=== PATIENT | male | born 1970 | race Hispanic/Latino ===

== ENCOUNTER 2021-06-02 11:40 | Inpatient (IN) | payer BC ==
[~2021-06-02] VITALS: Ht 180.3 cm; Wt 83.9 kg
[2021-06-02] MEDS: SODIUM CHLORIDE 0.9% 1000ML 1,000 ML IV SCH ×2 (11:59→12:40)
[2021-06-02 12:03] LABS: BASOPHILS % 0.3 % (0.0-1.0); EOSINOPHILS # (AUTO) 0.1 (0.0-0.4); EOSINOPHILS % 0.7 % (0.0-6.0); HEMATOCRIT 37.1 % (38.2-49.6); HEMOGLOBIN 11.8 g/dL (14.0-18.0); LYMPHOCYTES # (AUTO) 0.6 (1.0-3.2); LYMPHOCYTES % 4.6 % (18.0-39.1); MEAN CORPUSCULAR HEMOGLOBIN 30.6 pg (28-32); MEAN CORPUSCULAR HGB CONC 31.8 g/dL (31-35); MEAN CORPUSCULAR VOLUME 96.1 fL (81-99); MONOCYTES # (AUTO) 0.7 (0.2-0.8); NEUTROPHILS # (AUTO) 10.4 (2.1-6.9); NEUTROPHILS % 87.1 % (38.7-80.0); PLATELET COUNT 232 x10e3/uL (140-360); RED BLOOD COUNT 3.86 x10e6/uL (4.3-5.7); RED CELL DISTRIBUTION WIDTH 15.9 % (11.7-14.4)
[2021-06-02] MEDS ORDERED: SODIUM CHLORIDE 0.9% 1000ML 1,000 ML IV SCH (12:15)
[2021-06-02] MEDS ORDERED: ACETAMINOPHEN 325 MG TAB PO ONE (12:15)
[2021-06-02] MEDS: CEFEPIME 1 GM in SODIUM CHLORIDE 0.9% 50ML 50 ML IV SCH (12:20)
[2021-06-02 12:21] LABS: ALBUMIN/GLOBULIN RATIO 0.5 (0.8-2.0); ANION GAP 27.5 mmol/L (8-16); CALCIUM 10.1 mg/dL (8.4-10.2); CREATININE, SERUM 16.09 mg/dL (0.72-1.25); POTASSIUM 4.5 mmol/L (3.5-5.1)
[2021-06-02] MEDS: Vancomycin IV 1 GM in SODIUM CHLORIDE 0.9% 250ML 250 ML IV SCH (12:40)
[2021-06-02] MEDS ORDERED: CARVEDILOL25 MG (13:32)
[2021-06-02] MEDS ORDERED: PANTOPRAZOLE SO40 MG (13:32)
[2021-06-02] MEDS ORDERED: CALCITRIOL0.5 MCG (13:32)
[2021-06-02] MEDS ORDERED: SEVELAMER CARB800 MG (13:32)
[2021-06-02] MEDS ORDERED: ROPINIROLE HC0.25 MG (13:32)
[2021-06-02] MEDS ORDERED: CIPROFLOXACIN500 MG (13:32)
[2021-06-02] MEDS ORDERED: GABAPENTIN100 MG (13:32)
[2021-06-02 14:37] VITALS: BP 118/68
[2021-06-02 14:46] VITALS: BP 118/68
[2021-06-02 15:05] LABS: BODY FLUID APPEARANCE CLEAR; BODY FLUID COLOR COLORLESS; BODY FLUID TYPE PERITONEAL
[2021-06-02] MEDS ORDERED: SILVADENE20 GM TOP (15:15)
[2021-06-02] MEDS ORDERED: SENSIPAR30 MG PO (15:16)
[2021-06-02] MEDS ORDERED: NIFEDIPINE ER30 M1 PO (15:17)
[2021-06-02] MEDS ORDERED: NEURONTIN100 MG PO (15:19)
[2021-06-02] MEDS ORDERED: CIPRO500 MG PO (15:19)
[2021-06-02] MEDS ORDERED: CARVEDILOL12.5 MG PO (15:20)
[2021-06-02 15:33] VITALS: BP 118/68
[2021-06-02 15:47] VITALS: BP 118/68
[2021-06-02 16:57] LABS: WBC,BODY FLUID 4 cells/uL
[2021-06-02 16:59] LABS: RBC,BODY FLUID < 2000 cells/uL
[2021-06-02] MEDS: SODIUM BICARBONATE 650 MG TAB PO SCH (17:28)
[2021-06-02] MEDS ORDERED: CEFEPIME 1 GM in SODIUM CHLORIDE 0.9% 50ML 50 ML IV SCH (18:00)
[2021-06-02] MEDS: ONDANSETRON HCL INJ 2MG/ML 2ML 2 MG/ML VIAL IV PRN (19:23)
[2021-06-02] MEDS: MORPHINE SULFATE INJ 4 MG/ML INJ 1ML IV PRN (19:23)
[2021-06-02 20:00] VITALS: BP 177/91
[2021-06-02 20:50] VITALS: BP 177/91
[2021-06-03] VITALS (8 sets, daily range): BP systolic 91–202; BP diastolic 62–95
[2021-06-03] MEDS ORDERED: SODIUM CHLORIDE 0.9% 250ML 250 ML ONE (00:22)
[2021-06-03] MEDS: CEFEPIME 1 GM in SODIUM CHLORIDE 0.9% 50ML 50 ML IV SCH (00:30)
[2021-06-03 04:56] LABS: BASOPHILS # (AUTO) 0.1 (0.0-0.1); BASOPHILS % 0.5 % (0.0-1.0); EOSINOPHILS # (AUTO) 0.1 (0.0-0.4); EOSINOPHILS % 0.5 % (0.0-6.0); HEMATOCRIT 30.5 % (38.2-49.6); HEMOGLOBIN 9.7 g/dL (14.0-18.0); LYMPHOCYTES # (AUTO) 0.8 (1.0-3.2); LYMPHOCYTES % 7.7 % (18.0-39.1); MEAN CORPUSCULAR HEMOGLOBIN 30.7 pg (28-32); MEAN CORPUSCULAR HGB CONC 31.8 g/dL (31-35); MEAN CORPUSCULAR VOLUME 96.5 fL (81-99); MONOCYTES # (AUTO) 0.8 (0.2-0.8); MONOCYTES % 8.3 % (4.4-11.3); NEUTROPHILS # (AUTO) 8.1 (2.1-6.9); NEUTROPHILS % 81.9 % (38.7-80.0); PLATELET COUNT 184 x10e3/uL (140-360); RED BLOOD COUNT 3.16 x10e6/uL (4.3-5.7); RED CELL DISTRIBUTION WIDTH 15.9 % (11.7-14.4)
[2021-06-03 05:20] LABS: ANION GAP 23.1 mmol/L (8-16); CREATININE, SERUM 15.46 mg/dL (0.72-1.25); MAGNESIUM 1.7 MG/DL (1.3-2.1); PHOSPHORUS 6.4 MG/DL (2.3-4.7); POTASSIUM 4.1 mmol/L (3.5-5.1)
[2021-06-03] MEDS ORDERED: ACETAMINOPHEN 325 MG TAB PO PRN (09:15)
[2021-06-03] MEDS: ROPINIROLE HCL 0.25 MG TAB PO SCH (10:00)
[2021-06-03] MEDS: SEVELAMER CARBONATE 800 MG TAB PO SCH (10:00)
[2021-06-03] MEDS: SODIUM BICARBONATE 650 MG TAB PO SCH ×2 (10:01→18:02)
[2021-06-03] MEDS: Vancomycin IV 1 GM in SODIUM CHLORIDE 0.9% 250ML 250 ML IV SCH (10:01)
[2021-06-03] MEDS: CARVEDILOL 12.5 MG TAB PO SCH ×2 (10:02→17:00)
[2021-06-03] MEDS: GABAPENTIN 100 MG CAP PO SCH ×2 (10:31→18:02)
[2021-06-03] MEDS: PANTOPRAZOLE SOD 40 MG TABEC PO SCH (10:39)
[2021-06-03] MEDS: NIFEDIPINE CR 30 MG TAB PO SCH (10:39)
[2021-06-03] MEDS: CALCITRIOL 0.25 MCG CAP PO SCH (10:40)
[2021-06-03] MEDS: CINACALCET 30 MG TAB PO SCH (12:07)
[2021-06-03] MEDS: PIPERACILLIN/TAZOBACTAM 3.375 GM in SODIUM CHLORIDE 0.9% 50ML 50 ML IV SCH (13:27)
[2021-06-03] MEDS: MORPHINE SULFATE INJ 4 MG/ML INJ 1ML IV PRN (13:53)
[2021-06-03] MEDS: ONDANSETRON HCL INJ 2MG/ML 2ML 2 MG/ML VIAL IV PRN (13:53)
[2021-06-04] VITALS (9 sets, daily range): BP systolic 113–140; BP diastolic 68–89
[2021-06-04] MEDS: PIPERACILLIN/TAZOBACTAM 3.375 GM in SODIUM CHLORIDE 0.9% 50ML 50 ML IV SCH ×2 (02:00→14:08)
[2021-06-04] MEDS: NIFEDIPINE CR 30 MG TAB PO SCH (09:00)
[2021-06-04] MEDS ORDERED: SODIUM CHLORIDE 0.9% IV SCH (09:00)
[2021-06-04] MEDS ORDERED: VANCOMYCIN IV SCH (09:00)
[2021-06-04] MEDS: CARVEDILOL 12.5 MG TAB PO SCH ×2 (09:00→17:00)
[2021-06-04] MEDS: GABAPENTIN 100 MG CAP PO SCH ×2 (09:00→16:22)
[2021-06-04] MEDS: Vancomycin IV 500 MG in SODIUM CHLORIDE 0.9% 100 ML IV SCH (09:00)
[2021-06-04] MEDS: PANTOPRAZOLE SOD 40 MG TABEC PO SCH (09:40)
[2021-06-04] MEDS: CALCITRIOL 0.25 MCG CAP PO SCH (09:42)
[2021-06-04] MEDS: ROPINIROLE HCL 0.25 MG TAB PO SCH (09:42)
[2021-06-04] MEDS: SODIUM BICARBONATE 650 MG TAB PO SCH ×2 (09:42→16:22)
[2021-06-04] MEDS: CINACALCET 30 MG TAB PO SCH (09:42)
[2021-06-04] MEDS: SEVELAMER CARBONATE 800 MG TAB PO SCH (09:43)
[2021-06-04] MEDS: SILVER SULFADIAZINE 50GM CREAM TOP SCH (12:13)
[2021-06-05] VITALS (8 sets, daily range): BP systolic 117–144; BP diastolic 73–81
[2021-06-05] MEDS: PIPERACILLIN/TAZOBACTAM 3.375 GM in SODIUM CHLORIDE 0.9% 50ML 50 ML IV SCH ×2 (01:02→13:44)
[2021-06-05 04:49] LABS: BASOPHILS % 0.1 % (0.0-1.0); EOSINOPHILS # (AUTO) 0.3 (0.0-0.4); EOSINOPHILS % 3.4 % (0.0-6.0); LYMPHOCYTES # (AUTO) 0.6 (1.0-3.2); LYMPHOCYTES % 6.8 % (18.0-39.1); MEAN CORPUSCULAR HEMOGLOBIN 30.1 pg (28-32); MEAN CORPUSCULAR HGB CONC 32.1 g/dL (31-35); MEAN CORPUSCULAR VOLUME 93.6 fL (81-99); MONOCYTES # (AUTO) 0.7 (0.2-0.8); MONOCYTES % 8.5 % (4.4-11.3); NEUTROPHILS # (AUTO) 6.8 (2.1-6.9); NEUTROPHILS % 80.4 % (38.7-80.0); PLATELET COUNT 203 x10e3/uL (140-360); RED BLOOD COUNT 2.99 x10e6/uL (4.3-5.7); RED CELL DISTRIBUTION WIDTH 15.6 % (11.7-14.4)
[2021-06-05 05:13] LABS: ANION GAP 27.1 mmol/L (8-16); CALCIUM 8.8 mg/dL (8.4-10.2); CREATININE, SERUM 16.98 mg/dL (0.72-1.25); MAGNESIUM 1.9 MG/DL (1.3-2.1); POTASSIUM 4.1 mmol/L (3.5-5.1)
[2021-06-05] MEDS: NIFEDIPINE CR 30 MG TAB PO SCH (09:00)
[2021-06-05] MEDS: SILVER SULFADIAZINE 50GM CREAM TOP SCH (09:06)
[2021-06-05] MEDS: MUPIROCIN 2% OINT 22 GM TUBE TOP SCH (09:06)
[2021-06-05] MEDS: CINACALCET 30 MG TAB PO SCH (09:06)
[2021-06-05] MEDS: CALCITRIOL 0.25 MCG CAP PO SCH (09:06)
[2021-06-05] MEDS: SEVELAMER CARBONATE 800 MG TAB PO SCH (09:06)
[2021-06-05] MEDS: SODIUM BICARBONATE 650 MG TAB PO SCH ×2 (09:06→17:05)
[2021-06-05] MEDS: GABAPENTIN 100 MG CAP PO SCH ×2 (09:06→17:05)
[2021-06-05] MEDS: ROPINIROLE HCL 0.25 MG TAB PO SCH (09:06)
[2021-06-05] MEDS: Vancomycin IV 500 MG in SODIUM CHLORIDE 0.9% 100 ML IV SCH (09:07)
[2021-06-05] MEDS: PANTOPRAZOLE SOD 40 MG TABEC PO SCH (09:07)
[2021-06-05] MEDS: CARVEDILOL 12.5 MG TAB PO SCH ×2 (09:07→17:05)
[2021-06-05] MEDS: MORPHINE SULFATE INJ 4 MG/ML INJ 1ML IV PRN ×2 (09:30→20:57)
[2021-06-05] MEDS: EPOETIN ALFA-EPBX 10,000 UNIT/ML VIAL SC SCH (09:56)
[2021-06-05] MEDS: ONDANSETRON HCL INJ 2MG/ML 2ML 2 MG/ML VIAL IV PRN (20:57)
[2021-06-06] VITALS (7 sets, daily range): BP systolic 107–174; BP diastolic 70–93
[2021-06-06] MEDS: PIPERACILLIN/TAZOBACTAM 3.375 GM in SODIUM CHLORIDE 0.9% 50ML 50 ML IV SCH ×2 (02:19→14:22)
[2021-06-06] MEDS: MORPHINE SULFATE INJ 4 MG/ML INJ 1ML IV PRN (03:51)
[2021-06-06] MEDS: ROPINIROLE HCL 0.25 MG TAB PO SCH (09:00)
[2021-06-06] MEDS: SEVELAMER CARBONATE 800 MG TAB PO SCH (09:00)
[2021-06-06] MEDS: Vancomycin IV 500 MG in SODIUM CHLORIDE 0.9% 100 ML IV SCH (09:52)
[2021-06-06] MEDS: GABAPENTIN 100 MG CAP PO SCH ×2 (09:52→17:57)
[2021-06-06] MEDS: CARVEDILOL 12.5 MG TAB PO SCH ×2 (09:52→17:00)
[2021-06-06] MEDS: PANTOPRAZOLE SOD 40 MG TABEC PO SCH (09:52)
[2021-06-06] MEDS: ASPIRIN 81 MG ENTERIC COATED PO SCH (09:52)
[2021-06-06] MEDS: MUPIROCIN 2% OINT 22 GM TUBE TOP SCH (09:53)
[2021-06-06] MEDS: CINACALCET 30 MG TAB PO SCH (09:53)
[2021-06-06] MEDS: NIFEDIPINE CR 30 MG TAB PO SCH (09:53)
[2021-06-06] MEDS: SODIUM BICARBONATE 650 MG TAB PO SCH ×2 (09:53→17:57)
[2021-06-06] MEDS: CALCITRIOL 0.25 MCG CAP PO SCH (09:53)
[2021-06-06] MEDS: SILVER SULFADIAZINE 50GM CREAM TOP SCH (09:53)
[2021-06-06] MEDS ORDERED: LACTULOSE SYRUP 20 GM/30 ML UDC PO PRN (14:00)
[2021-06-06] MEDS: DOCUSATE SODIUM 100 MG CAP PO SCH (17:56)
[2021-06-06] MEDS: POLYETHYLENE GLYCOL 3350 17 GM PACK PO SCH (22:36)
[2021-06-07] VITALS (8 sets, daily range): BP systolic 107–138; BP diastolic 75–92
[2021-06-07] MEDS: PIPERACILLIN/TAZOBACTAM 3.375 GM in SODIUM CHLORIDE 0.9% 50ML 50 ML IV SCH ×2 (02:35→14:05)
[2021-06-07] MEDS: SEVELAMER CARBONATE 800 MG TAB PO SCH (07:35)
[2021-06-07] MEDS: ROPINIROLE HCL 0.25 MG TAB PO SCH (07:35)
[2021-06-07] MEDS: PANTOPRAZOLE SOD 40 MG TABEC PO SCH (08:20)
[2021-06-07] MEDS: DOCUSATE SODIUM 100 MG CAP PO SCH ×2 (08:20→17:30)
[2021-06-07] MEDS: Vancomycin IV 500 MG in SODIUM CHLORIDE 0.9% 100 ML IV SCH (08:20)
[2021-06-07] MEDS: ASPIRIN 81 MG ENTERIC COATED PO SCH (08:20)
[2021-06-07] MEDS: SODIUM BICARBONATE 650 MG TAB PO SCH ×2 (08:21→17:31)
[2021-06-07] MEDS: NIFEDIPINE CR 30 MG TAB PO SCH (08:21)
[2021-06-07] MEDS: SILVER SULFADIAZINE 50GM CREAM TOP SCH (08:21)
[2021-06-07] MEDS: LACTULOSE SYRUP 20 GM/30 ML UDC PO SCH ×3 (08:21→21:00)
[2021-06-07] MEDS: CALCITRIOL 0.25 MCG CAP PO SCH (08:21)
[2021-06-07] MEDS: POLYETHYLENE GLYCOL 3350 17 GM PACK PO SCH (08:21)
[2021-06-07] MEDS: CARVEDILOL 12.5 MG TAB PO SCH ×2 (08:21→17:31)
[2021-06-07] MEDS: GABAPENTIN 100 MG CAP PO SCH ×2 (08:21→17:31)
[2021-06-07] MEDS: CINACALCET 30 MG TAB PO SCH (08:21)
[2021-06-07] MEDS: MUPIROCIN 2% OINT 22 GM TUBE TOP SCH (08:21)
[2021-06-07] MEDS ORDERED: DEXTROSE 50% SYRINGE 50 ML IV PRN (12:45)
[2021-06-07] MEDS: INSULIN REGULAR, HUMAN 100 UNIT/1 ML SQ SCH ×2 (16:30→21:00)
[2021-06-08] VITALS (15 sets, daily range): BP systolic 124–192; BP diastolic 44–95
[2021-06-08] MEDS: PIPERACILLIN/TAZOBACTAM 3.375 GM in SODIUM CHLORIDE 0.9% 50ML 50 ML IV SCH ×2 (02:00→14:00)
[2021-06-08 05:43] LABS: BASOPHILS # (AUTO) 0.1 (0.0-0.1); BASOPHILS % 0.4 % (0.0-1.0); EOSINOPHILS # (AUTO) 0.5 (0.0-0.4); EOSINOPHILS % 3.4 % (0.0-6.0); HEMATOCRIT 29.7 % (38.2-49.6); HEMOGLOBIN 9.3 g/dL (14.0-18.0); LYMPHOCYTES # (AUTO) 0.6 (1.0-3.2); LYMPHOCYTES % 4.2 % (18.0-39.1); MEAN CORPUSCULAR HEMOGLOBIN 30.3 pg (28-32); MEAN CORPUSCULAR HGB CONC 31.3 g/dL (31-35); MEAN CORPUSCULAR VOLUME 96.7 fL (81-99); MONOCYTES # (AUTO) 0.7 (0.2-0.8); MONOCYTES % 5.2 % (4.4-11.3); NEUTROPHILS # (AUTO) 11.4 (2.1-6.9); NEUTROPHILS % 85.8 % (38.7-80.0); PLATELET COUNT 301 x10e3/uL (140-360); RED BLOOD COUNT 3.07 x10e6/uL (4.3-5.7); RED CELL DISTRIBUTION WIDTH 16.2 % (11.7-14.4)
[2021-06-08 05:59] LABS: INR 1.17; PROTHROMBIN TIME 15.6 seconds (11.9-14.5)
[2021-06-08 06:00] LABS: PARTIAL THROMBOPLASTIN TIME 61.7 seconds (23.8-35.5)
[2021-06-08 06:08] LABS: ANION GAP 26.1 mmol/L (8-16); CALCIUM 9.5 mg/dL (8.4-10.2); CREATININE, SERUM 17.04 mg/dL (0.72-1.25); POTASSIUM 4.1 mmol/L (3.5-5.1)
[2021-06-08] MEDS: INSULIN REGULAR, HUMAN 100 UNIT/1 ML SQ SCH ×4 (07:30→21:00)
[2021-06-08] MEDS: PANTOPRAZOLE SOD 40 MG TABEC PO SCH (07:30)
[2021-06-08] MEDS ORDERED: SODIUM CHLORIDE 0.9% 250ML 250 ML ONE ×3 (07:45→15:58)
[2021-06-08] MEDS: CARVEDILOL 12.5 MG TAB PO SCH ×2 (07:59→17:49)
[2021-06-08] MEDS: DOCUSATE SODIUM 100 MG CAP PO SCH ×2 (07:59→17:00)
[2021-06-08] MEDS: GABAPENTIN 100 MG CAP PO SCH (08:01)
[2021-06-08] MEDS: LACTULOSE SYRUP 20 GM/30 ML UDC PO SCH ×3 (08:01→21:00)
[2021-06-08] MEDS: SODIUM BICARBONATE 650 MG TAB PO SCH ×2 (08:02→17:49)
[2021-06-08] MEDS: SILVER SULFADIAZINE 50GM CREAM TOP SCH (09:00)
[2021-06-08] MEDS: MUPIROCIN 2% OINT 22 GM TUBE TOP SCH (09:00)
[2021-06-08] MEDS ORDERED: MIDAZOLAM HCL 2 MG/2 ML VIAL ONE (10:54)
[2021-06-08] MEDS ORDERED: FENTANYL CITRATE/PF 100MCG/2 ML INJ ONE (10:55)
[2021-06-08] MEDS ORDERED: LIDOCAINE HCL 2% LOCAL 20 ML VIAL ONE (10:55)
[2021-06-08] MEDS ORDERED: HEPARIN SOD/SOD CHLORIDE 2,000 ML ONE (10:55)
[2021-06-08] MEDS ORDERED: SODIUM CHLORIDE 0.9% 1000ML 1,000 ML ONE (10:56)
[2021-06-08] MEDS ORDERED: IOPAMIDOL 300MG/ML 100 ML INFUS..BTL IV ONE (10:56)
[2021-06-08] MEDS: EPOETIN ALFA-EPBX 10,000 UNIT/ML VIAL SC SCH (12:31)
[2021-06-08] MEDS ORDERED: LIDOCAINE HCL 1% LOCAL INJ 20 ML VIAL ONE (15:58)
[2021-06-08] MEDS: POLYETHYLENE GLYCOL 3350 17 GM PACK PO SCH (17:47)
[2021-06-08] MEDS: ASPIRIN 81 MG ENTERIC COATED PO SCH (17:47)
[2021-06-08] MEDS: CALCITRIOL 0.25 MCG CAP PO SCH (17:48)
[2021-06-08] MEDS: ROPINIROLE HCL 0.25 MG TAB PO SCH (17:48)
[2021-06-08] MEDS: SEVELAMER CARBONATE 800 MG TAB PO SCH (17:48)
[2021-06-08] MEDS: NIFEDIPINE CR 30 MG TAB PO SCH (17:48)
[2021-06-08] MEDS: CINACALCET 30 MG TAB PO SCH (17:48)
[2021-06-08] MEDS ORDERED: SODIUM CHLORIDE 0.9% IV SCH (21:00)
[2021-06-08] MEDS ORDERED: ATORVASTATIN 20 MG TAB PO SCH (21:00)
[2021-06-08] MEDS ORDERED: ERTAPENEM IV SCH (21:00)
[2021-06-09] VITALS: BP 146/42
[2021-06-09 04:00] VITALS: BP 150/63
[2021-06-09] MEDS: PANTOPRAZOLE SOD 40 MG TABEC PO SCH (07:30)
[2021-06-09] MEDS: INSULIN REGULAR, HUMAN 100 UNIT/1 ML SQ SCH (07:30)
[2021-06-09 08:04] VITALS: BP 167/86
[2021-06-09 08:32] VITALS: BP 167/86
[2021-06-09] MEDS: DOCUSATE SODIUM 100 MG CAP PO SCH (08:59)
[2021-06-09] MEDS: NIFEDIPINE CR 30 MG TAB PO SCH (08:59)
[2021-06-09] MEDS: POLYETHYLENE GLYCOL 3350 17 GM PACK PO SCH (08:59)
[2021-06-09] MEDS: CARVEDILOL 12.5 MG TAB PO SCH (08:59)
[2021-06-09] MEDS: LACTULOSE SYRUP 20 GM/30 ML UDC PO SCH (08:59)
[2021-06-09] MEDS: ASPIRIN 81 MG ENTERIC COATED PO SCH (08:59)
[2021-06-09] MEDS: SILVER SULFADIAZINE 50GM CREAM TOP SCH (09:00)
[2021-06-09] MEDS: CALCITRIOL 0.25 MCG CAP PO SCH (09:00)
[2021-06-09] MEDS: MUPIROCIN 2% OINT 22 GM TUBE TOP SCH (09:00)
[2021-06-09] MEDS: CINACALCET 30 MG TAB PO SCH (09:00)
[2021-06-09] MEDS: SODIUM BICARBONATE 650 MG TAB PO SCH (09:00)
[2021-06-09] MEDS ORDERED: CLOPIDOGREL BISULFATE 75 MG TAB PO SCH (09:00)
[2021-06-09] MEDS: SEVELAMER CARBONATE 800 MG TAB PO SCH (09:00)
[2021-06-09] MEDS: ROPINIROLE HCL 0.25 MG TAB PO SCH (09:00)
== END 2021-06-09 10:05 | disposition left against medical advice (07) | DRG 853 ==
LOC: ER 11:55 → ERHOLD 13:13 → ER 13:44 → MED/SURG3 13:49
PROVIDERS: ADMIT Internal Medicine; ATTEND Internal Medicine
PROC: 3E1M39Z Irrigation of Peritoneal Cavity using Dialysate, Percutaneous Approach (ICD-10-PCS; 2021-06-02)
PROC: 3E1M39Z Irrigation of Peritoneal Cavity using Dialysate, Percutaneous Approach (ICD-10-PCS; 2021-06-03)
PROC: 3E1M39Z Irrigation of Peritoneal Cavity using Dialysate, Percutaneous Approach (ICD-10-PCS; 2021-06-04)
PROC: 0JBR0ZZ Excision of Left Foot Subcutaneous Tissue and Fascia, Open Approach (ICD-10-PCS; 2021-06-05)
PROC: 0JBQ0ZZ Excision of Right Foot Subcutaneous Tissue and Fascia, Open Approach (ICD-10-PCS; 2021-06-05)
PROC: 0JBR0ZZ Excision of Left Foot Subcutaneous Tissue and Fascia, Open Approach (ICD-10-PCS; 2021-06-07)
PROC: 0KBV0ZZ Excision of Right Foot Muscle, Open Approach (ICD-10-PCS; 2021-06-07)
PROC: 3E1M39Z Irrigation of Peritoneal Cavity using Dialysate, Percutaneous Approach (ICD-10-PCS; 2021-06-07)
PROC: B41D1ZZ Fluoroscopy of Aorta and Bilateral Lower Extremity Arteries using Low Osmolar Contrast (ICD-10-PCS; principal; 2021-06-08)
DX: A41.9 Sepsis, unspecified organism (principal); N18.6 End stage renal disease; I12.0 Hypertensive chronic kidney disease with stage 5 chronic kidney disease or end stage renal disease; E87.1 Hypo-osmolality and hyponatremia; L03.115 Cellulitis of right lower limb; M86.8X7 Other osteomyelitis, ankle and foot; L97.415 Non-pressure chronic ulcer of right heel and midfoot with muscle involvement without evidence of necrosis; L97.422 Non-pressure chronic ulcer of left heel and midfoot with fat layer exposed; E11.621 Type 2 diabetes mellitus with foot ulcer; A41.89 Other specified sepsis; E11.22 Type 2 diabetes mellitus with diabetic chronic kidney disease; Z99.2 Dependence on renal dialysis; D64.9 Anemia, unspecified; E11.51 Type 2 diabetes mellitus with diabetic peripheral angiopathy without gangrene; E11.42 Type 2 diabetes mellitus with diabetic polyneuropathy; E11.628 Type 2 diabetes mellitus with other skin complications; E11.69 Type 2 diabetes mellitus with other specified complication; E83.39 Other disorders of phosphorus metabolism; B95.2 Enterococcus as the cause of diseases classified elsewhere
CPT/HCPCS: 36247; 36415; 71045; 75630; 76937; 80048; 80053; 80202; 82948; 83605; 83735; 84100; 85025; 85610; 85730; 87040; 87070; 87071; 87075; 87186; 87205; 89051; 93005; 93306; 93925; 99152; 99153; 99251; 99284; C1760; C1769; J0692; J1335; J1817; J2001; J2250; J2270; J2405; J2543; J3010; J3370; J7030; J7050; Q9967; U0002

== ENCOUNTER → 2022-10-07 | Day surgery (SDC) | payer MEDICARE ==
[~2022-10-07] MED LIST: CALCITRIOL0.5 MCG; CARVEDILOL12.5 MG PO; CARVEDILOL25 MG; CIPRO500 MG PO; CIPROFLOXACIN500 MG; CLOPIDOGREL75 MG PO; GABAPENTIN100 MG; GLIMEPIRIDE2 MG PO; LIDOCAINE HCL 2% LOCAL INJ 5 ML SDV VIAL INJ ONE; MIDAZOLAM HCL 2 MG/2 ML VIAL ONE; NEURONTIN100 MG PO; NIFEDIPINE ER30 M1 PO; PANTOPRAZOLE SO40 MG; POVIDONE IODINE 0.05% 0.05 % ML PO ONE; PROPOFOL IV EMULSION 10 MG/ML 20 ML VIAL ONE; ROPINIROLE HC0.25 MG; SENSIPAR30 MG PO; SEVELAMER CARB800 MG; SILVADENE20 GM TOP; SODIUM CHLORIDE 0.9% 500ML 500 ML ONE; [UNRECOGNIZED DRUG - OTHER] PO
[2022-10-07 08:54] VITALS: BP 123/70
== END | disposition home or self-care (01) ==
LOC: OR 07:07
PROVIDERS: ATTEND Internal Medicine Gastroenterology
DX: Z12.11 Encounter for screening for malignant neoplasm of colon (principal); K63.5 Polyp of colon; K64.8 Other hemorrhoids; K21.9 Gastro-esophageal reflux disease without esophagitis; I12.0 Hypertensive chronic kidney disease with stage 5 chronic kidney disease or end stage renal disease; N18.6 End stage renal disease; Z01.810 Encounter for preprocedural cardiovascular examination; Z79.02 Long term (current) use of antithrombotics/antiplatelets; Z79.84 Long term (current) use of oral hypoglycemic drugs; Z79.899 Other long term (current) drug therapy
CPT/HCPCS: 36415; 45385; 82948; 84132; 88305; 93005 ×2; J2001; J2250; J2704; J7040; 45378

== ENCOUNTER → 2023-01-04 | Day surgery (SDC) | payer BC ==
[~2023-01-04] MED LIST changes: +ASPIRIN81 MG PO; -CALCITRIOL0.5 MCG; +CALCITRIOL0.5 MCG PO; +FENTANYL CITRATE/PF 100MCG/2 ML INJ ONE; -LIDOCAINE HCL 2% LOCAL INJ 5 ML SDV VIAL INJ ONE; +LIPITOR10 MG PO; +METOCLOPRAMIDE10 MG PO; +OR PHACO EYE KIT ONE; -PANTOPRAZOLE SO40 MG; +PANTOPRAZOLE SO40 MG PO; -POVIDONE IODINE 0.05% 0.05 % ML PO ONE; +PREOP PHACO EYE KIT ONE; -PROPOFOL IV EMULSION 10 MG/ML 20 ML VIAL ONE
[2023-01-04 09:00] LABS: ANION GAP 16.5 mmol/L (8-16); CALCIUM 9.2 mg/dL (8.4-10.2); CREATININE, SERUM 10.79 mg/dL (0.72-1.25); POTASSIUM 5.5 mmol/L (3.5-5.1)
[2023-01-04 10:53] VITALS: BP 156/84
== END | disposition home or self-care (01) ==
LOC: OR 07:40
PROVIDERS: ATTEND Ophthalmology
DX: H25.12 Age-related nuclear cataract, left eye (principal); E11.22 Type 2 diabetes mellitus with diabetic chronic kidney disease; I12.0 Hypertensive chronic kidney disease with stage 5 chronic kidney disease or end stage renal disease; N18.6 End stage renal disease; I25.118 Atherosclerotic heart disease of native coronary artery with other forms of angina pectoris; I70.213 Atherosclerosis of native arteries of extremities with intermittent claudication, bilateral legs; E78.00 Pure hypercholesterolemia, unspecified; K21.9 Gastro-esophageal reflux disease without esophagitis; Z79.02 Long term (current) use of antithrombotics/antiplatelets; Z79.82 Long term (current) use of aspirin; Z79.84 Long term (current) use of oral hypoglycemic drugs; Z99.2 Dependence on renal dialysis
CPT/HCPCS: 36415; 66984; 80048; 82948; J2250; J3010; J7040

== ENCOUNTER 2024-12-27 08:50 | Emergency (ER) | payer BC ==
[~2024-12-27] VITALS: Ht 177.8 cm; Wt 83.6 kg
[~2024-12-27 08:50] MED LIST changes: -FENTANYL CITRATE/PF 100MCG/2 ML INJ ONE; +LIDOCAINE HCL50 ML TOP; +LOKELMA10 GM PO; -MIDAZOLAM HCL 2 MG/2 ML VIAL ONE; -OR PHACO EYE KIT ONE; -PREOP PHACO EYE KIT ONE; +SEVELAMER CARB800 MG PO; -SODIUM CHLORIDE 0.9% 500ML 500 ML ONE
[2024-12-27 08:54] VITALS: TEMP 98
[2024-12-27] MEDS: AMLODIPINE BESYLATE 10 MG TAB PO ONE (09:45)
[2024-12-27] MEDS ORDERED: HYDRALAZINE HCL 20 MG/ML VIAL IV ONE (10:30)
[2024-12-27 10:45] VITALS: BP 198/91
[2024-12-27] MEDS: CLONIDINE HCL 0.1 MG TAB PO ONE (10:45)
[2024-12-27] MEDS ORDERED: BACLOFEN10 MG PO ×2 (11:21)
[2024-12-27 12:00] VITALS: PULSE 72; RESP 18; O2SAT 97
== END 2024-12-27 12:09 | disposition home or self-care (01) ==
LOC: FSED 08:54
DX: M79.605 Pain in left leg (principal); L03.116 Cellulitis of left lower limb; S86.812A Strain of other muscle(s) and tendon(s) at lower leg level, left leg, initial encounter; I12.9 Hypertensive chronic kidney disease with stage 1 through stage 4 chronic kidney disease, or unspecified chronic kidney disease; E11.22 Type 2 diabetes mellitus with diabetic chronic kidney disease; N18.9 Chronic kidney disease, unspecified; Z99.2 Dependence on renal dialysis; E78.5 Hyperlipidemia, unspecified; D64.9 Anemia, unspecified; H54.61 Unqualified visual loss, right eye, normal vision left eye
CPT/HCPCS: 93971; 99284

== ENCOUNTER 2025-05-13 15:08 | Inpatient (IN) | payer BC ==
[~2025-05-13] VITALS: Ht 177.8 cm; Wt 83.5 kg
[2025-05-13] VITALS (7 sets, daily range): BP systolic 160; BP diastolic 83; PULSE 80–102; RESP 16–20; TEMP 98.5–98.6; O2SAT 96–100
[~2025-05-13 15:08] MED LIST changes: +BACLOFEN10 MG PO
[2025-05-13 15:53] LABS: BASOPHILS % 0.2 % (0.0-1.0); EOSINOPHILS # (AUTO) 0.1 (0.0-0.4); EOSINOPHILS % 0.9 % (0.0-6.0); HEMATOCRIT 37.8 % (38.2-49.6); HEMOGLOBIN 11.9 g/dL (14.0-18.0); LYMPHOCYTES # (AUTO) 0.7 (1.0-3.2); LYMPHOCYTES % 7.9 % (18.0-39.1); MEAN CORPUSCULAR HGB CONC 31.5 g/dL (31-35); MONOCYTES # (AUTO) 0.7 (0.2-0.8); MONOCYTES % 7.7 % (4.4-11.3); NEUTROPHILS # (AUTO) 7.6 (2.1-6.9); NEUTROPHILS % 82.3 % (38.7-80.0); PLATELET COUNT 132 x10e3/uL (140-360); RED BLOOD COUNT 4.11 x10e6/uL (4.3-5.7); WHITE BLOOD COUNT 9.25 x10e3/uL (4.8-10.8)
[2025-05-13] MEDS ORDERED: IOPAMIDOL 370 MG/ML 100 ML INFUS..BTL INJ ONE (15:59)
[2025-05-13 16:26] LABS: ALBUMIN 2.9 g/dL (3.5-5.0); ALBUMIN/GLOBULIN RATIO 0.7 (0.8-2.0); ANION GAP 18.7 mmol/L (8-16); BILIRUBIN,TOTAL 0.5 mg/dL (0.2-1.2); CALCIUM 7.9 mg/dL (8.4-10.2); CREATININE, SERUM 6.34 mg/dL (0.72-1.25); POTASSIUM 3.7 mmol/L (3.5-5.1); TOTAL PROTEIN 7.3 g/dL (6.5-8.1)
[2025-05-13] MEDS: Vancomycin IV 1 GM in SODIUM CHLORIDE 0.9% 250ML 250 ML IV ONE (18:04)
[2025-05-13] MEDS: HYDROMORPHONE 1MG/1ML INJ IV PRN (18:27)
[2025-05-13] MEDS: HYDRALAZINE HCL 20 MG/ML VIAL IV PRN (20:10)
[2025-05-14] VITALS (10 sets, daily range): BP systolic 117–187; BP diastolic 61–84; PULSE 77–109; RESP 16–20; TEMP 98–100.2; O2SAT 94–100
[2025-05-14] MEDS: ACETAMINOPHEN 325 MG TAB PO PRN (01:38)
[2025-05-14 06:26] LABS: BASOPHILS % 0.3 % (0.0-1.0); EOSINOPHILS % 0.4 % (0.0-6.0); HEMOGLOBIN 10.8 g/dL (14.0-18.0); LYMPHOCYTES # (AUTO) 1.3 (1.0-3.2); LYMPHOCYTES % 11.6 % (18.0-39.1); MEAN CORPUSCULAR HEMOGLOBIN 29.1 pg (28-32); MEAN CORPUSCULAR HGB CONC 31.8 g/dL (31-35); MEAN CORPUSCULAR VOLUME 91.6 fL (81-99); MONOCYTES # (AUTO) 1.3 (0.2-0.8); MONOCYTES % 12.3 % (4.4-11.3); NEUTROPHILS % 74.3 % (38.7-80.0); PLATELET COUNT 137 x10e3/uL (140-360); RED BLOOD COUNT 3.71 x10e6/uL (4.3-5.7); RED CELL DISTRIBUTION WIDTH 13.9 % (11.7-14.4); WHITE BLOOD COUNT 10.76 x10e3/uL (4.8-10.8)
[2025-05-14 06:55] LABS: ALBUMIN 2.7 g/dL (3.5-5.0); ALBUMIN/GLOBULIN RATIO 0.7 (0.8-2.0); ANION GAP 18.7 mmol/L (8-16); BILIRUBIN,TOTAL 0.4 mg/dL (0.2-1.2); CALCIUM 7.4 mg/dL (8.4-10.2); CREATININE, SERUM 7.58 mg/dL (0.72-1.25); POTASSIUM 3.7 mmol/L (3.5-5.1); TOTAL PROTEIN 6.7 g/dL (6.5-8.1)
[2025-05-14] MEDS: DEXTROSE 50% SYRINGE 50 ML IV ONE (07:22)
[2025-05-14] MEDS: NIFEDIPINE CR 30 MG TAB PO SCH (10:00)
[2025-05-14] MEDS: ASPIRIN 81 MG CHEW TAB PO SCH (10:00)
[2025-05-14] MEDS: CALCITRIOL 0.25 MCG CAP PO SCH (10:00)
[2025-05-14] MEDS: CINACALCET 30 MG TAB PO SCH (10:01)
[2025-05-14] MEDS: GABAPENTIN 100 MG CAP PO SCH (10:01)
[2025-05-14] MEDS: SODIUM CHLORIDE 0.9% 250ML 250 ML ONE (11:08)
[2025-05-14] MEDS: INSULIN LISPRO 100 UNIT/1 ML 3ML VIAL SQ SCH (11:30)
[2025-05-14] MEDS: ONDANSETRON HCL INJ 2MG/ML 2ML 2 MG/ML VIAL IV PRN (14:43)
[2025-05-14] MEDS: SEVELAMER CARBONATE 800 MG TAB PO SCH (16:35)
[2025-05-14] MEDS: ATORVASTATIN 20 MG TAB PO SCH (21:09)
[2025-05-15] VITALS (9 sets, daily range): BP systolic 124–139; BP diastolic 67–77; PULSE 77–85; RESP 18–20; TEMP 97.5–98.4; O2SAT 96–100
[2025-05-15] MEDS: DEXTROSE 50% SYRINGE 50 ML IV PRN (06:58)
[2025-05-15 07:26] LABS: ALBUMIN 2.6 g/dL (3.5-5.0); ALBUMIN/GLOBULIN RATIO 0.7 (0.8-2.0); BILIRUBIN,TOTAL 0.4 mg/dL (0.2-1.2); CALCIUM 7.3 mg/dL (8.4-10.2); CREATININE, SERUM 10.03 mg/dL (0.72-1.25); TOTAL PROTEIN 6.5 g/dL (6.5-8.1)
[2025-05-15] MEDS: PANTOPRAZOLE SOD 40 MG TABEC PO SCH (09:46)
[2025-05-16] VITALS (12 sets, daily range): BP systolic 96–172; BP diastolic 60–109; PULSE 65–141; RESP 18–20; TEMP 97.5–102; O2SAT 94–100
[2025-05-16] MEDS ORDERED: FENTANYL CITRATE/PF 100MCG/2 ML INJ ONE (06:25)
[2025-05-16] MEDS ORDERED: LIDOCAINE HCL 2% LOCAL INJ 5 ML SDV VIAL INJ ONE (06:25)
[2025-05-16] MEDS ORDERED: PROPOFOL IV EMULSION 10 MG/ML 20 ML VIAL ONE (06:25)
[2025-05-16] MEDS ORDERED: METOCLOPRAMIDE HCL 10 MG/2ML VIAL ONE (06:44)
[2025-05-16] MEDS ORDERED: ONDANSETRON HCL INJ 2MG/ML 2ML 2 MG/ML VIAL ONE (06:44)
[2025-05-16 07:21] LABS: ALBUMIN 2.8 g/dL (3.5-5.0); ALBUMIN/GLOBULIN RATIO 0.6 (0.8-2.0); ANION GAP 20.3 mmol/L (8-16); BILIRUBIN,TOTAL 0.4 mg/dL (0.2-1.2); CALCIUM 7.5 mg/dL (8.4-10.2); CREATININE, SERUM 7.85 mg/dL (0.72-1.25); POTASSIUM 4.3 mmol/L (3.5-5.1); TOTAL PROTEIN 7.2 g/dL (6.5-8.1)
[2025-05-16] MEDS: FENTANYL CITRATE/PF 100MCG/2 ML INJ ONE (07:32)
[2025-05-16] MEDS: METOPROLOL TARTRATE INJ 1 MG/ML VIAL IV ONE (10:27)
[2025-05-16] MEDS: HYDRALAZINE HCL 25 MG TAB PO SCH (15:16)
[2025-05-17] VITALS (12 sets, daily range): BP systolic 90–120; BP diastolic 55–63; PULSE 79–96; RESP 18–20; TEMP 97.2–98.7; O2SAT 96–100
[2025-05-17] MEDS: SODIUM CHLORIDE 0.9% 1000ML 1,000 ML IV SCH (02:34)
[2025-05-17 03:15] LABS: BASOPHILS # (AUTO) 0.1 (0.0-0.1); BASOPHILS % 0.2 % (0.0-1.0); HEMATOCRIT 32.9 % (38.2-49.6); HEMOGLOBIN 10.3 g/dL (14.0-18.0); LYMPHOCYTES # (AUTO) 0.5 (1.0-3.2); LYMPHOCYTES % 1.8 % (18.0-39.1); MEAN CORPUSCULAR HGB CONC 31.3 g/dL (31-35); MEAN CORPUSCULAR VOLUME 92.7 fL (81-99); MONOCYTES # (AUTO) 0.8 (0.2-0.8); MONOCYTES % 2.7 % (4.4-11.3); NEUTROPHILS # (AUTO) 27.7 (2.1-6.9); PLATELET COUNT 124 x10e3/uL (140-360); RED BLOOD COUNT 3.55 x10e6/uL (4.3-5.7); RED CELL DISTRIBUTION WIDTH 14.5 % (11.7-14.4)
[2025-05-17 03:40] LABS: ALBUMIN 2.4 g/dL (3.5-5.0); ALBUMIN/GLOBULIN RATIO 0.6 (0.8-2.0); ANION GAP 20.1 mmol/L (8-16); BILIRUBIN,TOTAL 0.8 mg/dL (0.2-1.2); CREATININE, SERUM 9.33 mg/dL (0.72-1.25); TOTAL PROTEIN 6.5 g/dL (6.5-8.1)
[2025-05-17 04:25] LABS: CALCIUM 6.8 mg/dL (8.4-10.2); POTASSIUM 5.1 mmol/L (3.5-5.1); WHITE BLOOD COUNT 29.84 x10e3/uL (4.8-10.8)
[2025-05-17 05:41] LABS: HEPATITIS B SURFACE AG (P) Negative (Negative)
[2025-05-17] MEDS: SODIUM CHLORIDE 0.9% 250ML 250 ML IV ONE (07:45)
[2025-05-17 09:35] LABS: BAND NEUTROPHILS % (MANUAL) 6 %; LYMPHOCYTES % (MANUAL) 1 % (19-48); MONOCYTES % (MANUAL) 2 % (3.4-9.0); NEUTROPHILS % (MANUAL) 91 % (40-74)
[2025-05-17 09:36] LABS: PLATELET ESTIMATE SLIGHTLY DECREASED; PLATELET MORPHOLOGY COMMENT NORMAL
[2025-05-17] MEDS: ALBUMIN 5% 0.05 GM/ML BTL IV STA (14:45)
[2025-05-17] MEDS ORDERED: ALBUMIN 25% 12.5GM 0.25 GM/ML BTL IV PRN (16:00)
[2025-05-17] MEDS ORDERED: SODIUM CHLORIDE 0.9% 1000ML 2,000 ML IV PRN (16:00)
[2025-05-18] VITALS (10 sets, daily range): BP systolic 114–131; BP diastolic 63–78; PULSE 80–112; RESP 18–22; TEMP 97.8–98.9; O2SAT 95–100
[2025-05-18 15:55] LABS: BASOPHILS % 0.2 % (0.0-1.0); EOSINOPHILS # (AUTO) 0.3 (0.0-0.4); EOSINOPHILS % 1.7 % (0.0-6.0); HEMATOCRIT 29.4 % (38.2-49.6); HEMOGLOBIN 9.2 g/dL (14.0-18.0); LYMPHOCYTES # (AUTO) 1.1 (1.0-3.2); LYMPHOCYTES % 7.2 % (18.0-39.1); MEAN CORPUSCULAR HEMOGLOBIN 28.9 pg (28-32); MEAN CORPUSCULAR HGB CONC 31.3 g/dL (31-35); MEAN CORPUSCULAR VOLUME 92.5 fL (81-99); MONOCYTES # (AUTO) 1.1 (0.2-0.8); MONOCYTES % 6.9 % (4.4-11.3); NEUTROPHILS # (AUTO) 12.8 (2.1-6.9); NEUTROPHILS % 81.9 % (38.7-80.0); PLATELET COUNT 117 x10e3/uL (140-360); RED BLOOD COUNT 3.18 x10e6/uL (4.3-5.7); RED CELL DISTRIBUTION WIDTH 14.6 % (11.7-14.4); WHITE BLOOD COUNT 15.59 x10e3/uL (4.8-10.8)
[2025-05-19] VITALS (10 sets, daily range): BP systolic 113–134; BP diastolic 58–75; PULSE 78–94; RESP 17–20; TEMP 97.4–98.6; O2SAT 95–100
[2025-05-19] MEDS: SODIUM CHLORIDE 0.9% 1000ML 2,000 ML ONE (08:41)
[2025-05-20] VITALS (8 sets, daily range): BP systolic 125–175; BP diastolic 72–95; PULSE 81–90; RESP 16–19; TEMP 97.3–98.6; O2SAT 96–100
[2025-05-20 09:19] LABS: BASOPHILS # (AUTO) 0.1 (0.0-0.1); BASOPHILS % 0.7 % (0.0-1.0); EOSINOPHILS # (AUTO) 0.2 (0.0-0.4); EOSINOPHILS % 2.9 % (0.0-6.0); HEMATOCRIT 32.9 % (38.2-49.6); HEMOGLOBIN 10.3 g/dL (14.0-18.0); LYMPHOCYTES # (AUTO) 1.3 (1.0-3.2); LYMPHOCYTES % 17.6 % (18.0-39.1); MEAN CORPUSCULAR HEMOGLOBIN 29.2 pg (28-32); MEAN CORPUSCULAR HGB CONC 31.3 g/dL (31-35); MEAN CORPUSCULAR VOLUME 93.2 fL (81-99); MONOCYTES # (AUTO) 0.5 (0.2-0.8); MONOCYTES % 6.7 % (4.4-11.3); NEUTROPHILS # (AUTO) 4.8 (2.1-6.9); NEUTROPHILS % 66.5 % (38.7-80.0); PLATELET COUNT 142 x10e3/uL (140-360); RED BLOOD COUNT 3.53 x10e6/uL (4.3-5.7); RED CELL DISTRIBUTION WIDTH 14.6 % (11.7-14.4)
[2025-05-20 10:00] LABS: ALBUMIN 2.3 g/dL (3.5-5.0); ALBUMIN/GLOBULIN RATIO 0.6 (0.8-2.0); ANION GAP 18.2 mmol/L (8-16); BILIRUBIN,TOTAL 0.5 mg/dL (0.2-1.2); CALCIUM 7.2 mg/dL (8.4-10.2); CREATININE, SERUM 9.31 mg/dL (0.72-1.25); POTASSIUM 4.2 mmol/L (3.5-5.1); TOTAL PROTEIN 6.2 g/dL (6.5-8.1)
[2025-05-20] MEDS: METOPROLOL TARTRATE INJ 1 MG/ML VIAL IV PRN (21:08)
[2025-05-21] VITALS (8 sets, daily range): BP systolic 120–157; BP diastolic 57–96; PULSE 82–93; RESP 16–20; TEMP 97.7–98.2; O2SAT 95–100
[2025-05-22] VITALS (8 sets, daily range): BP systolic 134–197; BP diastolic 63–79; PULSE 78–86; RESP 16–20; TEMP 97–98.1; O2SAT 95–100
[2025-05-22 09:24] LABS: BASOPHILS % 0.7 % (0.0-1.0); EOSINOPHILS # (AUTO) 0.2 (0.0-0.4); EOSINOPHILS % 3.2 % (0.0-6.0); HEMATOCRIT 33.2 % (38.2-49.6); HEMOGLOBIN 10.1 g/dL (14.0-18.0); LYMPHOCYTES # (AUTO) 1.3 (1.0-3.2); LYMPHOCYTES % 22.4 % (18.0-39.1); MEAN CORPUSCULAR HEMOGLOBIN 29.2 pg (28-32); MEAN CORPUSCULAR HGB CONC 30.4 g/dL (31-35); MONOCYTES # (AUTO) 0.6 (0.2-0.8); MONOCYTES % 9.7 % (4.4-11.3); NEUTROPHILS # (AUTO) 3.5 (2.1-6.9); NEUTROPHILS % 59.1 % (38.7-80.0); PLATELET COUNT 167 x10e3/uL (140-360); RED BLOOD COUNT 3.46 x10e6/uL (4.3-5.7); RED CELL DISTRIBUTION WIDTH 14.9 % (11.7-14.4); WHITE BLOOD COUNT 5.86 x10e3/uL (4.8-10.8)
[2025-05-22] MEDS ORDERED: ALBUMIN 25% 12.5GM 0.25 GM/ML BTL IV PRN (09:30)
[2025-05-22] MEDS ORDERED: SODIUM CHLORIDE 0.9% 1000ML 2,000 ML IV PRN (09:30)
[2025-05-22 10:12] LABS: ANION GAP 16.4 mmol/L (8-16); CALCIUM 7.6 mg/dL (8.4-10.2); CREATININE, SERUM 7.37 mg/dL (0.72-1.25); POTASSIUM 4.4 mmol/L (3.5-5.1)
[2025-05-22] MEDS: MAALOX/LIDOCAINE/BENADRYL/NYST 30 ML BTL PO PRN (21:33)
[2025-05-23] VITALS: BP 124/68; PULSE 90; RESP 18; TEMP 97.5; O2SAT 100
[2025-05-23 06:17] VITALS: BP 121/60; PULSE 87; RESP 20; TEMP 98.1; O2SAT 100
[2025-05-23 08:00] VITALS: BP 149/73; PULSE 56; RESP 19; TEMP 98.2; O2SAT 100
[2025-05-23 09:16] VITALS: BP 149/73; PULSE 86; RESP 19; TEMP 98.2; O2SAT 100
[2025-05-23 12:06] VITALS: BP 121/69; PULSE 89; RESP 20; TEMP 97.7; O2SAT 100
[2025-05-23 15:45] VITALS: BP 131/61; PULSE 86; RESP 20; TEMP 98; O2SAT 100
[2025-05-23] MEDS ORDERED: MEROPENEM1 GM IV (16:50)
[2025-05-23] MEDS ORDERED: MEROPENEM 1 GM in SODIUM CHLORIDE 0.9% 100 ML IV SCH (21:00)
== END 2025-05-23 17:40 | disposition home or self-care (01) | DRG 717 ==
LOC: ER 15:50 → ERHOLD 18:58 → MED/SURG3 20:56
PROVIDERS: ADMIT Internal Medicine; ATTEND Internal Medicine
PROC: 3E0333Z Introduction of Anti-inflammatory into Peripheral Vein, Percutaneous Approach (ICD-10-PCS; 2025-05-13)
PROC: 5A1D70Z Performance of Urinary Filtration, Intermittent, Less than 6 Hours Per Day (ICD-10-PCS; principal; 2025-05-15)
PROC: 0V908ZZ Drainage of Prostate, Via Natural or Artificial Opening Endoscopic (ICD-10-PCS; 2025-05-16)
PROC: 0T7D8ZZ Dilation of Urethra, Via Natural or Artificial Opening Endoscopic (ICD-10-PCS; 2025-05-16)
PROC: 02HV33Z Insertion of Infusion Device into Superior Vena Cava, Percutaneous Approach (ICD-10-PCS; 2025-05-20)
DX: N41.2 Abscess of prostate (principal); A41.9 Sepsis, unspecified organism; R65.21 Severe sepsis with septic shock; J69.0 Pneumonitis due to inhalation of food and vomit; N18.6 End stage renal disease; T81.44XA Sepsis following a procedure, initial encounter; I12.0 Hypertensive chronic kidney disease with stage 5 chronic kidney disease or end stage renal disease; E44.0 Moderate protein-calorie malnutrition; Z16.12 Extended spectrum beta lactamase (ESBL) resistance; E87.1 Hypo-osmolality and hyponatremia; J98.11 Atelectasis; L03.114 Cellulitis of left upper limb; E11.22 Type 2 diabetes mellitus with diabetic chronic kidney disease; D63.1 Anemia in chronic kidney disease; E83.51 Hypocalcemia; E88.09 Other disorders of plasma-protein metabolism, not elsewhere classified; Z99.2 Dependence on renal dialysis; B96.20 Unspecified Escherichia coli [E. coli] as the cause of diseases classified elsewhere; E78.5 Hyperlipidemia, unspecified; N35.911 Unspecified urethral stricture, male, meatal; R16.1 Splenomegaly, not elsewhere classified; N28.1 Cyst of kidney, acquired; K21.9 Gastro-esophageal reflux disease without esophagitis; M19.90 Unspecified osteoarthritis, unspecified site; H54.61 Unqualified visual loss, right eye, normal vision left eye; Z68.26 Body mass index [BMI] 26.0-26.9, adult; Z79.82 Long term (current) use of aspirin; Z79.84 Long term (current) use of oral hypoglycemic drugs; Z83.3 Family history of diabetes mellitus; Z82.49 Family history of ischemic heart disease and other diseases of the circulatory system; Y84.8 Other medical procedures as the cause of abnormal reaction of the patient, or of later complication, without mention of misadventure at the time of the procedure
CPT/HCPCS: 36415; 71045; 74177; 80048; 80053; 82948; 84484; 85025; 86706; 87040; 87071; 87075; 87086; 87186; 87205; 87340; 93005; 94799; 96372; 99252; 99284; J0360; J1171; J2003; J2185; J2405; J2470; J2543; J2765; J7030; J7050; J7799; Q9967